=== PATIENT | male | born 1965 | race Caucasian/White ===

== ENCOUNTER 2023-08-02 10:13 | Outpatient (RCR) | payer MEDICARE ==
[~2023-08-02 10:13] MED LIST: DIOVAN80 MG PO; ELIQUIS5 MG PO; LASIX40 MG PO; LEVOFLOXACIN250 MG PO; LIPITOR20 MG PO; METOPROLOL TART25 MG PO; MINERAL OIL/PETROLAT/GLYCERI 6OZ BTL ONE; MUPIROCIN 2% OINT 22 GM TUBE ONE; PIOGLITAZONE HC45 MG PO; TRADJENTA5 MG PO
[2023-08-02] MEDS ORDERED: MINERAL OIL/PETROLAT/GLYCERI 6OZ BTL ONE (12:17)
== END 2023-08-03 ==
LOC: WCC 10:13
PROVIDERS: ATTEND Internal Medicine Infectious Disease
DX: T81.89XA Other complications of procedures, not elsewhere classified, initial encounter (principal)
CPT/HCPCS: 36415; 82948